=== PATIENT | male | born 1990 | race Caucasian/White ===

== ENCOUNTER 2017-03-22 12:29 | Emergency (ER) | payer SELFPAY ==
[~2017-03-22] VITALS: Ht 200.7 cm; Wt 111.5 kg
[2017-03-22 12:34] VITALS: BP 138/87
[2017-03-22] MEDS ORDERED: FLUORESCEIN OPHTHALMIC 1 MG STRIP ONE (12:59)
[2017-03-22] MEDS ORDERED: PROPARACAINE OPHTH 0.5%, 15ML ONE (12:59)
== END 2017-03-22 13:19 | disposition home or self-care (01) ==
LOC: ED 13:13
DX: H00.011 Hordeolum externum right upper eyelid (principal)
CPT/HCPCS: 99283

== ENCOUNTER 2017-05-07 16:47 | Emergency (ER) | payer BC ==
[~2017-05-07] VITALS: Ht 200.7 cm; Wt 118.0 kg
[2017-05-07 16:49] VITALS: BP 152/88
[2017-05-07] MEDS ORDERED: OXYcodone/APAP 5/325MG TABLET ONE (17:30)
[2017-05-07] MEDS ORDERED: OXYcodone/APAP 5/325MG TABLET PO ONE (17:30)
== END 2017-05-07 18:28 | disposition home or self-care (01) ==
LOC: ED 18:22
DX: S93.612A Sprain of tarsal ligament of left foot, initial encounter (principal); S93.622A Sprain of tarsometatarsal ligament of left foot, initial encounter; V19.3XXA Pedal cyclist (driver) (passenger) injured in unspecified nontraffic accident, initial encounter; Y93.55 Activity, bike riding; Y92.328 Other athletic field as the place of occurrence of the external cause; Y99.8 Other external cause status
CPT/HCPCS: 29515

== ENCOUNTER 2017-11-20 06:42 | Emergency (ER) | payer BC ==
[~2017-11-20] VITALS: Ht 200.7 cm; Wt 117.6 kg
[2017-11-20 06:45] VITALS: BP 161/100
[2017-11-20] MEDS ORDERED: KETOROLAC 30 MG/1 ML IM ONE (07:30)
[2017-11-20] MEDS ORDERED: CEFAZOLIN 1,000 MG IM ONE (07:30)
[2017-11-20] MEDS ORDERED: CEFAZOLIN 1,000 MG ONE (07:32)
[2017-11-20] MEDS ORDERED: KETOROLAC 30 MG/1 ML ONE (07:32)
== END 2017-11-20 08:16 | disposition home or self-care (01) ==
LOC: ED 08:01
DX: K13.0 Diseases of lips (principal)
CPT/HCPCS: 96372; 99284; J0690; J1885

== ENCOUNTER 2018-03-19 06:33 | Emergency (ER) | payer BC ==
[~2018-03-19] VITALS: Ht 200.7 cm; Wt 118.0 kg
[2018-03-19] MEDS ORDERED: KETOROLAC 30 MG/1 ML ONE (07:13)
[2018-03-19] MEDS ORDERED: OXYcodone/APAP 5/325MG TABLET ONE (07:14)
[2018-03-19] MEDS ORDERED: DIAZEPAM 5 MG TABLET ONE (07:14)
[2018-03-19] MEDS ORDERED: KETOROLAC 30 MG/1 ML IM ONE (07:30)
[2018-03-19] MEDS ORDERED: OXYcodone/APAP 5/325MG TABLET PO ONE (07:30)
[2018-03-19] MEDS ORDERED: DIAZEPAM 5 MG TABLET PO ONE (07:30)
[2018-03-19 08:26] VITALS: BP 122/73
== END 2018-03-19 08:50 | disposition home or self-care (01) ==
LOC: ED 07:28
DX: S39.012A Strain of muscle, fascia and tendon of lower back, initial encounter (principal); S29.012A Strain of muscle and tendon of back wall of thorax, initial encounter; X58.XXXA Exposure to other specified factors, initial encounter; Y93.89 Activity, other specified; Y92.89 Other specified places as the place of occurrence of the external cause; Y99.8 Other external cause status
CPT/HCPCS: 96372; 99283; J1885

== ENCOUNTER 2018-03-25 16:37 | Emergency (ER) | payer BC ==
[~2018-03-25] VITALS: Ht 200.7 cm; Wt 117.6 kg
[2018-03-25 17:25] LABS: BASOPHILS # (AUTO) 0.03 x10^3/uL (0-0.1); BASOPHILS % (AUTO) 0 % (0-1); EOSINOPHILS # (AUTO) 0.11 x10^3/uL (0-0.4); EOSINOPHILS % (AUTO) 1 % (1-7); LYMPHOCYTES # (AUTO) 0.68 x10^3/uL (1-3.4); LYMPHOCYTES % (AUTO) 5 % (22-44); MD NO; MEAN CORPUSCULAR HEMOGLOBIN 31.2 pg (27.5-34.5); MEAN CORPUSCULAR HGB CONC 34.2 g/dL (33.2-36.2); MEAN CORPUSCULAR VOLUME 91.3 fL (81-97); MEAN PLATELET VOLUME 9.2 fL (7.4-10.4); MONOCYTES # (AUTO) 0.68 x10^3/uL (0.2-0.8); MONOCYTES % (AUTO) 5 % (2-9); NEUTROPHILS # (AUTO) 11.38 x10^3/uL (1.8-6.8); NEUTROPHILS % (AUTO) 88 % (42-75); PLATELET COUNT 193 x10^3/uL (130-400); RED BLOOD COUNT 5.35 x10^6/uL (4.38-5.82); RED CELL DISTRIBUTION WIDTH 12.4 % (9.4-14.8)
[2018-03-25] MEDS ORDERED: ONDANSETRON ODT 4 MG ONE ×2 (17:25→19:06)
[2018-03-25] MEDS ORDERED: KETOROLAC 30 MG/1 ML ONE (17:25)
[2018-03-25] MEDS ORDERED: KETOROLAC 30 MG/1 ML IVPush ONE (17:30)
[2018-03-25] MEDS ORDERED: ONDANSETRON ODT 4 MG PO ONE ×2 (17:30→19:30)
[2018-03-25] MEDS ORDERED: IBUP-1484 PO (17:35)
[2018-03-25 17:36] LABS: ALANINE AMINOTRANSFERASE 44 U/L (12-78); ALBUMIN 3.9 g/dL (3.4-5.0); ANION GAP 7 mmol/L (5-15); CALCIUM 8.9 mg/dL (8.5-10.1); CHLORIDE 108 mmol/L (98-107); CREATININE 1.07 mg/dL (0.7-1.3)
[2018-03-25 17:38] LABS: ALKALINE PHOSPHATASE 110 U/L (45-117); BILIRUBIN,TOTAL 0.7 mg/dL (0.2-1.0); TOTAL PROTEIN 7.1 g/dL (6.4-8.2)
[2018-03-25] MEDS ORDERED: SODIUM CHLORIDE 0.9% 1,000ML IVBOLUS ONE (18:00)
[2018-03-25 18:20] LABS: MICROSCOPIC NOT IND
[2018-03-25 18:22] LABS: CULTURE INDICATED? NO
[2018-03-25] MEDS ORDERED: OXYcodone/APAP 10/325MG TABLET PO ONE (19:00)
[2018-03-25] MEDS ORDERED: SODIUM CHLORIDE FLUSH 10ML SYR IVF ONE (19:00)
[2018-03-25] MEDS ORDERED: OXYcodone/APAP 10/325MG TABLET ONE (19:01)
[2018-03-25 20:01] VITALS: BP 121/74
== END 2018-03-25 20:23 | disposition home or self-care (01) ==
LOC: ED 20:00
DX: R10.12 Left upper quadrant pain (principal); R10.32 Left lower quadrant pain; R11.2 Nausea with vomiting, unspecified; R19.7 Diarrhea, unspecified
CPT/HCPCS: 36415; 74176; 80053; 81003; 85025; 96361; 96374; 99285; J1885; J7030; Q0162

== ENCOUNTER 2018-09-25 07:53 | Emergency (ER) | payer BC ==
[~2018-09-25] VITALS: Ht 200.7 cm; Wt 119.0 kg
[~2018-09-25 07:53] MED LIST: IBUP-1484 PO
--- NOTE | 2018-09-25 08:05 | NUR ---
PATIENT ARRIVES TO ER WITH RECENT (THREE DAYS ) BLOOD IN VOMIT AND BLOOD IN STOOL. HE HAS ABDOMINAL PAIN R/L UPPER QUADRANTS FOR THREE DAYS AND NAUSEA. HE STATES BLOOD IN STOOL FOR TWO WEEKS. HE WAS TRYING TO GO TO WORK TODAY AND THEY SENT HIM HERE. HE STATES HE IS ON NO MEDICATIONS. DE STATES HE CAN KEEP SOME FOOD DOWN, BUT IS THROWING UP USUALLY IN THE MORNING.
[2018-09-25] MEDS ORDERED: FAMOTIDINE 20 MG/2 ML IVP ONE (08:30)
[2018-09-25] MEDS ORDERED: ONDANSETRON 2MG/ML, 2ML IVPush ONE (08:30)
[2018-09-25] MEDS ORDERED: ONDANSETRON 2MG/ML, 2ML ONE (08:30)
[2018-09-25] MEDS ORDERED: SODIUM CHLORIDE FLUSH 10ML SYR IVF ONE (08:30)
[2018-09-25] MEDS ORDERED: FAMOTIDINE 20 MG/2 ML ONE (08:30)
[2018-09-25 08:49] LABS: BASOPHILS # (AUTO) 0.03 x10^3/uL (0-0.1); BASOPHILS % (AUTO) 1 % (0-1); EOSINOPHILS # (AUTO) 0.12 x10^3/uL (0-0.4); EOSINOPHILS % (AUTO) 2 % (1-7); LYMPHOCYTES # (AUTO) 1.64 x10^3/uL (1-3.4); LYMPHOCYTES % (AUTO) 27 % (22-44); MD NO; MEAN CORPUSCULAR HEMOGLOBIN 31.2 pg (27.5-34.5); MEAN CORPUSCULAR HGB CONC 33.9 g/dL (33.2-36.2); MEAN CORPUSCULAR VOLUME 91.9 fL (81-97); MEAN PLATELET VOLUME 9.1 fL (7.4-10.4); MONOCYTES # (AUTO) 0.55 x10^3/uL (0.2-0.8); MONOCYTES % (AUTO) 9 % (2-9); NEUTROPHILS # (AUTO) 3.83 x10^3/uL (1.8-6.8); NEUTROPHILS % (AUTO) 62 % (42-75); PLATELET COUNT 207 x10^3/uL (130-400); RED BLOOD COUNT 5.38 x10^6/uL (4.38-5.82); RED CELL DISTRIBUTION WIDTH 12.8 % (9.4-14.8)
[2018-09-25 08:58] LABS: CALCIUM 8.9 mg/dL (8.5-10.1); CHLORIDE 111 mmol/L (98-107)
[2018-09-25 09:03] LABS: ALANINE AMINOTRANSFERASE 67 U/L (12-78); ALKALINE PHOSPHATASE 102 U/L (45-117); ANION GAP 5 mmol/L (5-15); BILIRUBIN,TOTAL 0.4 mg/dL (0.2-1.0); TOTAL PROTEIN 7.3 g/dL (6.4-8.2)
[2018-09-25 09:41] VITALS: BP 115/78
--- NOTE | 2018-09-25 09:42 | NUR ---
PATIENT DISCHARGE TEACHING GIVEN REGARDING FOLLOW UP CARE, SHOWS UNDERSTANDING. STATES FEELING BETTER.
== END 2018-09-25 10:05 | disposition home or self-care (01) ==
LOC: ED 08:30
DX: K29.01 Acute gastritis with bleeding (principal); K62.5 Hemorrhage of anus and rectum; F17.200 Nicotine dependence, unspecified, uncomplicated; Z88.2 Allergy status to sulfonamides; Z91.048 Other nonmedicinal substance allergy status; Z88.5 Allergy status to narcotic agent
CPT/HCPCS: 36415; 80053; 83690; 85025; 96374; 96375; 99283; J2405; J3490

== ENCOUNTER 2018-12-11 16:29 | Emergency (ER) | payer BC ==
[~2018-12-11] VITALS: Ht 200.7 cm; Wt 114.5 kg
[2018-12-11 16:37] VITALS: BP 129/83
[2018-12-11] MEDS ORDERED: FLUORESCEIN OPHTHALMIC 1 MG STRIP ONE (16:42)
[2018-12-11] MEDS ORDERED: PROPARACAINE OPHTH 0.5%, 15ML ONE (16:42)
[2018-12-11] MEDS ORDERED: FLUORESCEIN/BENOXINATE 5 ML DROPS OP ONE (17:00)
== END 2018-12-11 18:03 | disposition home or self-care (01) ==
LOC: ED 17:58
DX: T15.02XA Foreign body in cornea, left eye, initial encounter (principal); F17.200 Nicotine dependence, unspecified, uncomplicated; X58.XXXA Exposure to other specified factors, initial encounter; Y93.89 Activity, other specified; Y92.89 Other specified places as the place of occurrence of the external cause; Y99.8 Other external cause status
CPT/HCPCS: 65222; 99284

== ENCOUNTER 2019-10-17 08:13 | Emergency (ER) | payer BC, OTHER ==
[~2019-10-17] VITALS: Ht 200.7 cm; Wt 115.0 kg
[~2019-10-17 08:13] MED LIST changes: -IBUP-1484 PO; +IBUP-1902 PO
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
[2019-10-17] MEDS ORDERED: DIAZEPAM 5 MG TABLET PO ONE (09:30)
[2019-10-17] MEDS ORDERED: HYDROmorphone 1 MG/ML, 1ML INJ IM ONE (09:30)
[2019-10-17] MEDS ORDERED: ONDANSETRON ODT 4 MG PO ONE (09:30)
[2019-10-17] MEDS ORDERED: ONDANSETRON ODT 4 MG ONE (09:55)
[2019-10-17] MEDS ORDERED: HYDROmorphone 1 MG/ML, 1ML INJ ONE (09:55)
[2019-10-17] MEDS ORDERED: DIAZEPAM 5 MG TABLET ONE (09:55)
[2019-10-17 11:05] VITALS: BP 106/64
--- NOTE | 2019-10-17 11:12 | NUR ---
REPORT GIVEN TO LUCIA EVANS
== END 2019-10-17 12:25 | disposition home or self-care (01) ==
LOC: ED 12:15
DX: S16.1XXA Strain of muscle, fascia and tendon at neck level, initial encounter (principal); S39.012A Strain of muscle, fascia and tendon of lower back, initial encounter; S29.012A Strain of muscle and tendon of back wall of thorax, initial encounter; F17.200 Nicotine dependence, unspecified, uncomplicated; V49.59XA Passenger injured in collision with other motor vehicles in traffic accident, initial encounter; Y93.89 Activity, other specified; Y92.410 Unspecified street and highway as the place of occurrence of the external cause; Y99.8 Other external cause status
CPT/HCPCS: 96372; 99283; J1170; Q0162

== ENCOUNTER 2019-10-21 14:45 | Emergency (ER) | payer OTHER, BC ==
[~2019-10-21] VITALS: Ht 200.7 cm; Wt 118.4 kg
[2019-10-21] MEDS ORDERED: SODIUM CHLORIDE FLUSH 10ML SYR IVF ONE (15:30)
[2019-10-21 15:57] LABS: BASOPHILS # (AUTO) 0.03 x10^3/uL (0-0.1); BASOPHILS % (AUTO) 1 % (0-1); EOSINOPHILS # (AUTO) 0.13 x10^3/uL (0-0.4); EOSINOPHILS % (AUTO) 2 % (1-7); LYMPHOCYTES # (AUTO) 1.88 x10^3/uL (1-3.4); LYMPHOCYTES % (AUTO) 31 % (22-44); MD NO; MEAN CORPUSCULAR HEMOGLOBIN 31.6 pg (27.5-34.5); MEAN CORPUSCULAR HGB CONC 34.4 g/dL (33.2-36.2); MEAN PLATELET VOLUME 9.1 fL (7.4-10.4); MONOCYTES # (AUTO) 0.51 x10^3/uL (0.2-0.8); MONOCYTES % (AUTO) 9 % (2-9); NEUTROPHILS # (AUTO) 3.51 x10^3/uL (1.8-6.8); NEUTROPHILS % (AUTO) 58 % (42-75); PLATELET COUNT 225 x10^3/uL (130-400); RED BLOOD COUNT 5.44 x10^6/uL (4.38-5.82); RED CELL DISTRIBUTION WIDTH 12.5 % (9.4-14.8)
[2019-10-21 16:03] LABS: ALBUMIN 4.1 g/dL (3.4-5.0); ANION GAP 6 mmol/L (5-15); CHLORIDE 107 mmol/L (98-107)
[2019-10-21 16:04] LABS: CREATININE 1.06 mg/dL (0.7-1.3)
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
[2019-10-21] MEDS ORDERED: ONDANSETRON 2MG/ML, 2ML IVPush ONE (18:30)
[2019-10-21] MEDS ORDERED: HYDROmorphone 1 MG/ML, 1ML INJ IV ONE ×2 (18:30→20:30)
--- NOTE | 2019-10-21 18:55 | NUR ---
REPORT GIVEN TO CHELSEY MYERS.
[2019-10-21] MEDS ORDERED: ONDANSETRON 2MG/ML, 2ML ONE (19:06)
[2019-10-21 19:07] LABS: ALANINE AMINOTRANSFERASE 37 U/L (12-78); ALKALINE PHOSPHATASE 102 U/L (45-117); BILIRUBIN,TOTAL 0.6 mg/dL (0.2-1.0); TOTAL PROTEIN 7.6 g/dL (6.4-8.2)
[2019-10-21] MEDS ORDERED: HYDROmorphone 1 MG/ML, 1ML INJ ONE ×2 (19:07→20:35)
[2019-10-21 19:08] LABS: BILIRUBIN, DIRECT < 0.1 mg/dL (0.1-0.2); BILIRUBIN,INDIRECT 0.5 mg/dL (0.0-2.0)
--- NOTE | 2019-10-21 19:13 | NUR ---
Pt medicated per NOV. To MRI with tech and girlfriend.
[2019-10-21 20:13] VITALS: BP 139/88
--- NOTE | 2019-10-21 20:13 | NUR ---
Pt returned from MRI. VS retaken. Pt provided with oral swabs - aware to remain NPO. Pt reports continued back pain.
--- NOTE | 2019-10-21 20:19 | NUR ---
MD at bedside discussing results with pt and SO.
[2019-10-21] MEDS ORDERED: methylPREDNISolone SOD SUCC 125 MG/2 ML ONE (20:23)
[2019-10-21] MEDS ORDERED: methylPREDNISolone SOD SUCC 125 MG/2 ML IVPush ONE (20:30)
[2019-10-21] MEDS ORDERED: KETOROLAC 30 MG/1 ML ONE (20:30)
[2019-10-21] MEDS ORDERED: KETOROLAC 30 MG/1 ML IM/IV ONE (20:30)
--- NOTE | 2019-10-21 21:10 | NUR ---
FLORISHABH RN; Patient/Caregiver given discharge instructions and they have confirmed that they understand the instructions. Patient ambulatory with steady gait.
== END 2019-10-21 21:13 | disposition home or self-care (01) ==
LOC: ED 21:05
DX: M54.16 Radiculopathy, lumbar region (principal)
CPT/HCPCS: 36415; 72148; 80048; 80076; 82040; 83690; 85025; 96372; 96374; 96375; 99284; J1170; J1885; J2405; J2930

== ENCOUNTER 2019-10-25 19:10 | Emergency (ER) | payer BC, OTHER ==
[~2019-10-25] VITALS: Ht 188 cm; Wt 100.0 kg
[2019-10-25] MEDS ORDERED: KETOROLAC 30 MG/1 ML IVPush ONE (19:30)
[2019-10-25] MEDS ORDERED: ONDANSETRON 2MG/ML, 2ML IVPush ONE (19:30)
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
[2019-10-25] MEDS ORDERED: KETOROLAC 30 MG/1 ML ONE ×2 (19:43→19:46)
[2019-10-25] MEDS ORDERED: ONDANSETRON 2MG/ML, 2ML ONE ×2 (19:46→19:54)
--- NOTE | 2019-10-25 19:49 | NUR ---
PALOMA RN: PT MEDICATED PER EMAR. 5 RIGHTS ADDRESSED. PT THRASHING AROUND ON BED, SCREAMING. PT STOPS WHEN SPEAKING TO THIS RN. CT CAME TO GET PT AND UNABLE TO GET CT DUE TO PT BEING UNCOOPERATIVE. PT STATES "THEY ALWAYS GIVE ME DILAUDID FOR THE PAIN, I WAS JUST HERE A FEW DAYS AGO". REPORT TO PRIMARY RN, JAMES.
[2019-10-25 20:01] LABS: MEAN CORPUSCULAR HEMOGLOBIN 31.6 pg (27.5-34.5); MEAN CORPUSCULAR HGB CONC 34.3 g/dL (33.2-36.2); MEAN CORPUSCULAR VOLUME 92.2 fL (81-97); MEAN PLATELET VOLUME 9.2 fL (7.4-10.4); PLATELET COUNT 206 x10^3/uL (130-400); RED BLOOD COUNT 4.85 x10^6/uL (4.38-5.82); RED CELL DISTRIBUTION WIDTH 12.3 % (9.4-14.8)
[2019-10-25 20:04] LABS: CALCIUM 8.4 mg/dL (8.5-10.1); CHLORIDE 107 mmol/L (98-107)
[2019-10-25 20:10] LABS: ALANINE AMINOTRANSFERASE 64 U/L (12-78); ALBUMIN 3.7 g/dL (3.4-5.0); ALKALINE PHOSPHATASE 87 U/L (45-117); ANION GAP 6 mmol/L (5-15); BILIRUBIN,TOTAL 0.3 mg/dL (0.2-1.0); CREATININE 1.03 mg/dL (0.7-1.3); TOTAL PROTEIN 6.9 g/dL (6.4-8.2)
[2019-10-25] MEDS ORDERED: HYDROmorphone 1 MG/ML, 1ML INJ ONE ×2 (20:37→22:07)
[2019-10-25 20:38] LABS: BASOPHILS # (AUTO) 0.03 x10^3/uL (0-0.1); BASOPHILS % (AUTO) 0 % (0-1); EOSINOPHILS # (AUTO) 0.01 x10^3/uL (0-0.4); EOSINOPHILS % (AUTO) 0 % (1-7); LYMPHOCYTES # (AUTO) 1.44 x10^3/uL (1-3.4); LYMPHOCYTES % (AUTO) 13 % (22-44); MD SCAN; MONOCYTES # (AUTO) 0.74 x10^3/uL (0.2-0.8); MONOCYTES % (AUTO) 7 % (2-9); NEUTROPHILS # (AUTO) 8.87 x10^3/uL (1.8-6.8); NEUTROPHILS % (AUTO) 80 % (42-75)
[2019-10-25] MEDS ORDERED: SODIUM CHLORIDE 0.9%, 500ML IVBOLUS ONE (21:00)
[2019-10-25] MEDS ORDERED: HYDROmorphone 2 MG/ML, 1ML IVPush ONE ×2 (21:00→22:00)
[2019-10-25 21:05] LABS: MICROSCOPIC AUTO
[2019-10-25 21:06] LABS: CULTURE INDICATED? YES
[2019-10-25 22:23] VITALS: BP 122/62
== END 2019-10-25 22:36 | disposition home or self-care (01) ==
LOC: ED 21:55
DX: N20.0 Calculus of kidney (principal); R10.9 Unspecified abdominal pain; Z87.891 Personal history of nicotine dependence; Z88.1 Allergy status to other antibiotic agents; Z88.2 Allergy status to sulfonamides
CPT/HCPCS: 36415; 74176; 80053; 81001; 85025; 87086; 96374; 96375; 96376; 99284; J1170; J1885; J2405; J7040

== ENCOUNTER 2020-01-26 14:42 | Emergency (ER) | payer BC ==
[~2020-01-26] VITALS: Ht 200.7 cm; Wt 116.7 kg
[2020-01-26 14:44] VITALS: BP 146/94
== END 2020-01-26 16:16 | disposition home or self-care (01) ==
LOC: ED 15:30
DX: M25.572 Pain in left ankle and joints of left foot (principal); M79.662 Pain in left lower leg; F17.200 Nicotine dependence, unspecified, uncomplicated
CPT/HCPCS: 99284

== ENCOUNTER 2020-08-19 09:18 | Emergency (ER) | payer BC ==
[~2020-08-19] VITALS: Ht 200.7 cm; Wt 117.8 kg
[2020-08-19 10:26] LABS: ALANINE AMINOTRANSFERASE 40 U/L (12-78); ALBUMIN 4.1 g/dL (3.4-5.0); ANION GAP 7 mmol/L (5-15); CALCIUM 8.9 mg/dL (8.5-10.1); CHLORIDE 109 mmol/L (98-107); CREATININE 1.13 mg/dL (0.7-1.3)
[2020-08-19 10:28] LABS: ALKALINE PHOSPHATASE 100 U/L (45-117); BILIRUBIN,TOTAL 0.5 mg/dL (0.2-1.0); TOTAL PROTEIN 7.2 g/dL (6.4-8.2)
[2020-08-19 10:29] LABS: BASOPHILS % (AUTO) 1 % (0-1); EOSINOPHILS % (AUTO) 1 % (1-7); LYMPHOCYTES % (AUTO) 25 % (22-44); MEAN CORPUSCULAR HEMOGLOBIN 31.6 pg (27.5-34.5); MEAN CORPUSCULAR HGB CONC 34.7 g/dL (33.2-36.2); MEAN PLATELET VOLUME 9.1 fL (7.4-10.4); MONOCYTES % (AUTO) 8 % (2-9); NEUTROPHILS % (AUTO) 65 % (42-75); PLATELET COUNT 205 x10^3/uL (130-400); RED BLOOD COUNT 4.95 x10^6/uL (4.38-5.82); RED CELL DISTRIBUTION WIDTH 12.6 % (9.4-14.8)
[2020-08-19 10:30] LABS: MD NO
[2020-08-19 11:25] VITALS: BP 107/60
--- NOTE | 2020-08-19 11:26 | NUR ---
PT RESTING ON [facility] AT THIS TIME, VSS, UPDATED ON POC. PLACED FOR RECHECK
== END 2020-08-19 12:10 | disposition home or self-care (01) ==
LOC: ED 09:44
DX: K64.4 Residual hemorrhoidal skin tags (principal); R19.7 Diarrhea, unspecified
CPT/HCPCS: 36415; 80053; 85025; 99283

== ENCOUNTER 2021-01-06 23:35 | Emergency (ER) | payer BC ==
[~2021-01-06] VITALS: Ht 193 cm; Wt 150.0 kg
[2021-01-06 23:37] VITALS: BP 132/91
[2021-01-06] MEDS ORDERED: HYDROcodone/APAP 5/325 TABLET ONE (23:53)
[2021-01-07] MEDS ORDERED: HYDROcodone/APAP 5/325 TABLET PO ONE
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
--- NOTE | 2021-01-07 00:11 | NUR ---
REPORT TO LUCIA FAGAN.
[2021-01-07] MEDS ORDERED: BUPIVACAINE 0.25% ONE (00:55)
[2021-01-07] MEDS ORDERED: LIDOCAINE 1%, 10ML INFIL ONE (01:00)
[2021-01-07] MEDS ORDERED: BUPIVACAINE 0.25% INFIL ONE (01:00)
--- NOTE | 2021-01-07 01:33 | NUR ---
Patient given discharge instructions and they have confirmed that they understand the instructions. Patient ambulatory with steady gait.
== END 2021-01-07 01:35 | disposition home or self-care (01) ==
LOC: ED 01-07 01:10
DX: K04.7 Periapical abscess without sinus (principal); F17.200 Nicotine dependence, unspecified, uncomplicated
CPT/HCPCS: 64400; 99284